=== PATIENT | female | born 1965 | race Asian ===

== ENCOUNTER → 2017-10-15 | Outpatient (CLI) | payer OTHER ==
--- NOTE | 2017-10-15 14:35 | WOMENS IMAGING REPORT ---
EXAM DESCRIPTION: 3D SCREENING MAMMO BILAT COMPLETED DATE/TIME: 10/15/2017 10:31 am REASON FOR STUDY: ROUTINE SCREENING;Z12.31 Z12.31 ENCNTR SCREEN MAMMOGRAM FOR MALIGNANT NEOPLASM OF KRISTI COMPARISON: [id number] TECHNIQUE: Standard craniocaudal and mediolateral oblique views of each breast recorded using digita l acquisition and breast tomosynthesis. LIMITATIONS: None. FINDINGS: No masses, calcifications or architectural distortion. No areas of suspicion. Read with the assistance of CAD. .[facility] R2 [employer] Version 1.3 .[facility] - R2 Cenova Version 1.3 .[facility] - R2 Cenova Version 2.4 .[facility] - R2 Cenova Version 2.4 .[facility] - R2 [employer] Version 9.2 IMPRESSION: NORMAL MAMMOGRAM. BIRADS 1. BREAST DENSITY: d. The breasts are extremely dense, which lowers the sensitivity of mammography. BIRAD: 1 NEGATIVE RECOMMENDATION: ROUTINE SCREENING COMMENT: The patient has been notified of the results by letter per SA requirements. Additional no tification policies are in place for contacting patient with suspicious or incomplete findings. Quality ID #225: The [employer] recommends an annual screening mammogram for women aged 40 years or over. This facility utilizes a reminder system to ensure that all patients receive reminder letters, and/or direct phone calls for appointments. This includes reminders for routine scr eening mammograms, diagnostic mammograms, or other Breast Imaging Interventions when appropriate. Th is patient will be placed in the appropriate reminder system. The [employer] (ACR) has developed recommendations for screening MRI of the breast s in certain patient populations, to be used in conjunction with mammography. Breast MRI surveillanc e may be appropriate for women with more than 20% lifetime risk of developing breast cancer as deter mined by genetic testing, significant family history of the disease, or history of mantle radiation f or Hodgkins Disease. ACR Practice Guidelines 2008. DBT Technology DBT is a type of tomographic mammography. With conventional mammography, overlapping breast tissue ma y make lesions difficult to detect, even with good compression. DBT uses an x-ray tube that rotates a round the breast, taking images at different angles. These images are then combined to create thin sl ices of the breast that the radiologist can view as a 3D reconstruction. The [employer] unit can perform full-field digital mammograms (2D imaging); or DBT (3D imaging); or both, in a combination mode that quickly performs both the mammogram and the tomosynthesis scan while the breast is still compressed. PQRS 6045F: Fluoroscopic imaging is not utilized for breast tomosynthesis. TECHNICAL DOCUMENTATION: FINDING NUMBER: (1) ASSESSMENT: (1) JOB ID: [id number] [employer]- All Rights Reserved Reading location - IP/workstation name: [email or web address] [email or web address]
== END ==
LOC: WI 09:03
PROVIDERS: ATTEND Specialist
DX: Z12.31 Encounter for screening mammogram for malignant neoplasm of breast (principal)
CPT/HCPCS: 77063; 77067

== ENCOUNTER → 2018-11-11 | Outpatient (CLI) | payer OTHER ==
--- NOTE | 2018-11-11 13:08 | WOMENS IMAGING REPORT ---
EXAM DESCRIPTION: BILAT SCREENING MAMMO W/CAD COMPLETED DATE/TIME: 11/11/2018 10:11 am REASON FOR STUDY: Z12.31 ROUTINE BILATERAL SCREENING Z12.31 ENCNTR SCREEN MAMMOGRAM FOR MALIGNANT N EOPLASM OF KRISTI COMPARISON: 10/15/2017 and 06/03/2015. EXAM PARAMETERS: Standard craniocaudal and mediolateral oblique views of each breast recorded using digital acquisition. Read with the assistance of CAD. .[facility] - [employer] Leader Version 9.2 LIMITATIONS: None. FINDINGS: No suspicious masses, suspicious calcifications or architectural distortion. No areas of s uspicion. IMPRESSION: ASSESSMENT: Negative MAMMOGRAM. BIRADS 1 BREAST DENSITY: d. The breasts are extremely dense, which lowers the sensitivity of mammography. BIRAD: 1 NEGATIVE RECOMMENDATION: ROUTINE SCREENING COMMENT: The patient has been notified of the results by letter per MQSA requirements. Additional no tification policies are in place for contacting patient with suspicious or incomplete findings. Quality ID #225: The [employer] recommends an annual screening mammogram for women aged 40 years or over. This facility utilizes a reminder system to ensure that all patients receive reminder letters, and/or direct phone calls for appointments. This includes reminders for routine scr eening mammograms, diagnostic mammograms, or other Breast Imaging Interventions when appropriate. Th is patient will be placed in the appropriate reminder system. TECHNICAL DOCUMENTATION: FINDING NUMBER: (1) ASSESSMENT: (1) JOB ID: [id number] [employer]- All Rights Reserved Reading location - IP/workstation name: [email or web address]
== END ==
LOC: WI 09:39
PROVIDERS: ATTEND Specialist
DX: Z12.31 Encounter for screening mammogram for malignant neoplasm of breast (principal)
CPT/HCPCS: 77067

== ENCOUNTER 2020-04-03 13:27 | Emergency (ER) | payer BC, OTHER ==
[2020-04-03 13:52] VITALS: BP 142/76
[2020-04-03] MEDS ORDERED: ACETAMINOPHEN 325 MG TABLET PO ONE (14:14)
--- NOTE | 2020-04-03 15:31 | RADIOLOGY REPORT (SQ) ---
EXAM DESCRIPTION: FOOT RIGHT COMPLETE IMAGES COMPLETED DATE/TIME: 04/03/2020 2:56 pm REASON FOR STUDY: injury COMPARISON: None. EXAM PARAMETERS: NUMBER OF VIEWS: Three views. TECHNIQUE: AP, lateral and oblique radiographic images acquired of the right foot. LIMITATIONS: None. FINDINGS: MINERALIZATION: Normal. BONES: Minimally displaced fracture of the proximal phalanx of the right 4th digit with slight latera l angulation. No intra-articular component identified. No other fracture. JOINTS: No effusion. SOFT TISSUES: No significant soft tissue swelling. No radiopaque foreign body. OTHER: No other significant finding. IMPRESSION: Minimally displaced fracture of the proximal phalanx of the right 4th digit with slight lateral angulation. No intra-articular component identified. TECHNICAL DOCUMENTATION: JOB ID: [id number] [place]-72 2010 [employer]- All Rights Reserved Reading location - IP/workstation name: [email or web address]
--- NOTE | 2020-04-03 15:34 | ER Document Report ---
HPI - HPI Patient complains to provider of: right toe injury Time Seen by Provider: 04/03/20 14:11 Pain Level: 3 Context: 54-year-old female presents to the emergency room complaining of pain to her right fourth toe. States she was walking in the house when she hit it her foot on the edge of the bed earlier today. States is able to walk but is painful to walk. No medications for pain prior to arrival. No history of previous fracture toes. Denies secondary to being postmenopausal. Associated Symptoms: None Exacerbated by: Movement, Walking Relieved by: Remaining still Similar symptoms previously: No Recently seen / treated by doctor: No - ROS Systems Reviewed and Negative: Yes All other systems reviewed and negative - NEURO Neurology: DENIES: Weakness - MUSCULOSKELETAL Musculoskeletal: REPORTS: Extremity pain Past Medical History - General Information source: Patient - Social History Smoking Status: Never Smoker Frequency of alcohol use: None Drug Abuse: None Family History: Reviewed & Not Pertinent Vertical Provider Document - CONSTITUTIONAL Agree With Documented VS: Yes Exam Limitations: No Limitations General Appearance: Mild Distress - INFECTION CONTROL TRAVEL OUTSIDE OF THE [place] IN LAST 30 DAYS: No - HEENT HEENT: Atraumatic, Normocephalic - NECK Neck: Normal Inspection, Supple - RESPIRATORY Respiratory: Breath Sounds Normal, No Respiratory Distress - CARDIOVASCULAR Cardiovascular: Regular Rate, Regular Rhythm, No Murmur - MUSCULOSKELETAL/EXTREMETIES Musculoskeletal/Extremeties: Tender - Tenderness noted to the base of the right fourth toe. Painful range of motion with flexion, extension, and is slightly distorted to the right. Mild ecchymosis noted. - NEURO Level of Consciousness: Awake, Alert, Appropriate Motor/Sensory: No Motor Deficit, No Sensory Deficit Notes: Positive right pedal pulse. Capillary refill less than 3 seconds. She is ambulatory with mild limping noted to the right foot. - DERM Integumentary: Warm, Dry, No Rash Course - Re-evaluation Re-evalutation: 04/03/20 15:42 E force records were reviewed no history of narcotic abuse. Patient will be discharged home with a prescription for #12 [place] for severe pain. Patient is able to ambulate with slight limping noted to right foot. Pain has improved w ith Tylenol. X-ray results were reviewed with patient. Melissa taping and postop shoe applied by nursing staff as documented. She was counseled to rest, ice, elevate her right foot. Outpatient follow-up with orthopedics, on-call physician was provided. Medications as prescribed for pain. Patient was given strict return to the emergency room guidelines. Return for any new or worsening symptoms. All questions were answered. Patient verbalized understanding and agrees with plan of care. 04/03/20 15:43 - Vital Signs Vital signs: Temp Pulse Resp BP Pulse Ox 98.9 F 63 20 142/76 H 99 04/03/20 13:51 04/03/20 13:51 04/03/20 13:51 04/03/20 13:51 04/03/20 13:51 - Diagnostic Test Radiology reviewed: Reports reviewed Procedures - Immobilization Right Toe 4th digit Time completed: 15:48 Pre-Proc Neuro Vasc Exam: Normal Immobilizer type: Crutches, Post-op shoe, Other - melissa tape of right 3rd and 4th toes Performed by: PCT Post-Proc Neuro Vasc Exam: Normal Alignment checked and good: Yes Discharge - Discharge Clinical Impression: Displaced fracture of proximal phalanx of right lesser toe(s), initial encounter for open fracture Condition: Stable Disposition: HOME, SELF-CARE Instructions: Melissa Taping (toes) ([facility]), Post-Op Shoe ([facility]), Fractured Toe ([facility]) Additional Instructions: Rest, ice, elevate your right foot for at least 20 minutes 3 times a day. Weightbearing as tolerated. Tylenol for mild pain. [place] for severe pain. Outpatient follow-up with orthopedics as discussed. Return to the emergency room for any new or worsening symptoms. Prescriptions: Hydrocodone/Acetaminophen [Monterey 5-325 mg Tablet] 1 tab PO Q6H PRN #12 tablet PRN Reason: For Pain Forms: Return to Work Referrals: TRACEE TY DO [ACTIVE STAFF] - Follow up tomorrow (Call tomorrow for an outpatient follow-up appointment)
== END 2020-04-03 16:01 | disposition home or self-care (01) ==
LOC: ER 13:27
DX: S92.511A Displaced fracture of proximal phalanx of right lesser toe(s), initial encounter for closed fracture (principal); M79.674 Pain in right toe(s); W22.8XXA Striking against or struck by other objects, initial encounter
CPT/HCPCS: 99284